=== PATIENT | male | born 1975 | race Caucasian/White ===

== ENCOUNTER 2016-09-18 09:58 | Day surgery (SDC) | payer OTHER ==
[~2016-09-18] VITALS: Ht 177.8 cm; Wt 107.3 kg
[~2016-09-18 09:58] MED LIST: DAILY VITAMIN1 EAC4 PO; LIPITOR40 MG PO; LO-DOSE ASPIRIN81 M2 PO; METOPROLOL TART25 MG PO; NITROGLYCERIN0.4 MG SL; NITROSTAT0.4 MG SL
[2016-09-18 15:45] VITALS: BP 145/92
[2016-09-18 19:08] VITALS: BP 126/77
[2016-09-19 00:37] VITALS: BP 154/88
[2016-09-19 04:40] VITALS: BP 134/78
[2016-09-19 06:43] LABS: EOSINOPHIL (%) 3.5 % (0-5); EOSINOPHIL COUNT 0.2 K/uL (0-0.3); HEMATOCRIT 39.3 % (38.0-50.0); IMMATURE GRANULOCYTE (%) 0.5 % (0.0-0.7); LYMPHOCYTE COUNT 1.3 K/uL (1.0-2.8); MCH 31.1 PG (29.0-34.0); MCHC 33.6 G/DL (30.0-36.0); MCV 92.5 FL (86-99); MEAN PLAT.VOLUME 11.4 uM^3 (9.0-12.4); MONOCYTE (%) 6.4 % (3-12); MONOCYTE COUNT 0.4 K/uL (0-0.8); NEUTROPHIL (%) 69.8 % (45-76); NEUTROPHIL COUNT 4.6 K/uL (1.8-6.4); PLATELET COUNT 172 K/uL (156-360); RBC DIS.WIDTH-CV 12.8 % (11.8-14.6); RBC DIS.WIDTH-SD 43.4 % (39-53); RED BLOOD COUNT 4.25 M/uL (4.00-5.50); WHITE BLOOD COUNT 6.6 K/uL (4.1-10.2)
[2016-09-19 08:14] VITALS: BP 134/90
[2016-09-19 11:06] VITALS: BP 133/85
[2016-09-19 11:14] LABS: ANION GAP 7 MEQ/L (2-14); CHLORIDE 106 MEQ/L (99-109); GFR ESTIMATE (CALCULATED) > 59 mL/min/; GLUCOSE 99 mg/dL (70-99); POTASSIUM 4.1 MEQ/L (3.7-5.4); SAMPLE HEMOLYSIS CHECK 0; SAMPLE ICTERIC CHECK 0; SAMPLE LIPEMIA CHECK 0; SODIUM 138 MEQ/L (136-147); UREA NITROGEN (BUN) 11 mg/dL (9-23)
[2016-09-19] MEDS ORDERED: CLOPIDOGREL75 MG PO (11:55)
== END 2016-09-19 12:35 | disposition home or self-care (01) ==
LOC: CATH 09:58 → 2SOUTH 12:57 → 4EAST 12:57
PROVIDERS: Internal Medicine Cardiovascular Disease
DX: I25.110 Atherosclerotic heart disease of native coronary artery with unstable angina pectoris (principal); R07.9 Chest pain, unspecified; R94.39 Abnormal result of other cardiovascular function study; F17.200 Nicotine dependence, unspecified, uncomplicated; Z79.82 Long term (current) use of aspirin
CPT/HCPCS: 80048; 85025; 85347; 93005; C1725; C1769; C1874; C1887; G0378; J1644; J2250; J3010; J3246; J7030; J7050